=== PATIENT | female | born 1950 | race African-American/Black ===

== ENCOUNTER 2018-11-16 14:06 | Inpatient (IN) | payer OTHER ==
[~2018-11-16] VITALS: Ht 157.5 cm; Wt 49.5 kg
[~2018-11-16 14:06] MED LIST: ATROPINE SULFATE 0.1 MG/ML 10 ML SYRINGE IVP ONE; ETOMIDATE 2 MG/ML 10 ML VIAL IVP ONE
[2018-11-16] MEDS ORDERED: 0.9% SODIUM CHLORIDE 10 ML SYRINGE IVP PRN (14:15)
[2018-11-16] MEDS ORDERED: IPRATROPIUM BROMIDE 0.5 MG/2.5 ML NEB SOLUTION NEB ONE ×3 (14:15→15:00)
[2018-11-16] MEDS ORDERED: AZITHROMYCIN 500 MG/NS 250 ML IV ONE (14:15)
[2018-11-16] MEDS ORDERED: ALBUTEROL SULFATE 5 MG/ML 20 ML NEB SOLN [BULK] NEB ONE ×3 (14:15→15:00)
[2018-11-16] MEDS ORDERED: MethylPREDNISolone SOD SUCC 125 MG/2 ML VIAL IVP ONE (14:15)
[2018-11-16] MEDS ORDERED: ATOR10TA84 PO (14:17)
[2018-11-16] MEDS ORDERED: ALBU2TAB42 PO (14:20)
[2018-11-16] MEDS ORDERED: 0.9% SODIUM CHLORIDE 5 ML NEB SOLUTION NEB ONE ×2 (14:28→16:33)
[2018-11-16 14:40] LABS: BASOPHILS % (AUTO) 0.5 % (0.0-2.0); EOSINOPHILS % (AUTO) 12.3 % (1.0-6.0); HEMATOCRIT 41.8 % (36-46); HEMOGLOBIN 13.3 g/dL (12.0-16.0); LYMPHOCYTES # (AUTO) 6.5 K/uL (1.0-4.8); LYMPHOCYTES % (AUTO) 59.2 % (22.0-44.0); MEAN CORPUSCULAR HGB CONC 31.9 G/dL (31.0-37.0); MEAN CORPUSCULAR VOLUME 97 fL (80-100); MONOCYTES # (AUTO) 0.4 K/uL (0.1-1.0); NEUTROPHILS # (AUTO) 2.6 K/uL (1.8-7.7); PLATELET COUNT (AUTO) 231 K/uL (150-450); RED BLOOD CELL COUNT(AUTO) 4.29 MIL/uL (4.00-5.20); RED CELL DISTRIBUTION WIDTH 14.1 % (11.5-14.5)
[2018-11-16] MEDS ORDERED: ONDANSETRON HCL 4 MG/2 ML VIAL IVP ONE (14:45)
[2018-11-16] MEDS ORDERED: MAGNESIUM SULFATE 2 GM/WATER 50 ML IV ONE (14:45)
[2018-11-16 14:53] LABS: D-DIMER 0.92 mg/L FEU (0.00-0.50); PROTHROMBIN TIME 10.2 SEC (9.4-11.6)
[2018-11-16 14:59] LABS: ANION GAP 14 mmol/L (8-16); CALCIUM, TOTAL 9.5 mg/dL (8.8-10.5); CARBON DIOXIDE 26 mmol/L (22-29); CHLORIDE 104 mmol/L (98-107); CREATININE 1.28 mg/dL (0.60-1.30); GLOMERULAR FILTR. RATE CALC 50 mL/min (>60); GLUCOSE,RANDOM 157 mg/dL (70-110); POTASSIUM 4.7 mmol/L (3.5-5.1); SODIUM SERUM 144 mmol/L (136-145); UREA NITROGEN, BLOOD 9 mg/dL (7-18)
[2018-11-16 15:16] LABS: B-TYPE NATRIURETIC PEPTIDE 145 pg/mL (0-100)
[2018-11-16 15:18] LABS: LACTIC ACID 5.7 mmol/L (0.4-2.0)
[2018-11-16 15:25] LABS: ALANINE AMINOTRANSFERASE 34 U/L (12-78); ALBUMIN 4.1 g/dL (3.4-5.0); ALKALINE PHOSPHATASE 112 U/L (46-116); ASPARTATE AMINOTRANSFERASE 38 U/L (15-37); BILIRUBIN,TOTAL 0.5 mg/dL (0.1-1.0); CREATINE KINASE, TOTAL ONLY 106 U/L (26-192); TOTAL PROTEIN, SERUM 7.7 g/dL (6.4-8.2)
[2018-11-16] MEDS ORDERED: SODIUM CHLORIDE 0.9% 2,000 ML IV ONE (15:30)
[2018-11-16] MEDS ORDERED: SODIUM CHLORIDE 0.9% 100 ML ONE ×2 (15:39→21:14)
[2018-11-16] MEDS ORDERED: IOVERSOL 350 MG/ML 100 ML VIAL ONE (15:39)
[2018-11-16] MEDS ORDERED: RAPID SEQUENCE KIT [RSI] 1 EACH KIT ONE (15:42)
[2018-11-16] MEDS ORDERED: SUCCINYLCHOLINE CHLORIDE 20 MG/ML 10 ML VIAL ONE (15:42)
[2018-11-16] MEDS ORDERED: WATER FOR INJECTION STERILE IV ONE (16:00)
[2018-11-16] MEDS ORDERED: ALTEPLASE IV ONE ×2 (16:00)
[2018-11-16] MEDS ORDERED: SODIUM CHLORIDE 0.9% IV SCH (16:00)
[2018-11-16] MEDS ORDERED: SODIUM CHLORIDE 0.9% IV ONE (16:00)
[2018-11-16] MEDS ORDERED: ALTEPLASE IV SCH (16:00)
[2018-11-16] MEDS ORDERED: KETAMINE HCL 50 MG/ML 10 ML VIAL ONE (16:07)
[2018-11-16] MEDS ORDERED: KETAMINE HCL 50 MG/ML 10 ML VIAL IVP ONE ×2 (16:15→18:00)
[2018-11-16] MEDS: PROPOFOL 1000 MG/ISO-OSM 100 ML IV PRN (17:30)
[2018-11-16] MEDS ORDERED: ONDANSETRON HCL 4 MG/2 ML VIAL IVP PRN (17:45)
[2018-11-16] MEDS ORDERED: ACETAMINOPHEN 325 MG TABLET PO PRN (17:45)
[2018-11-16 19:15] LABS: ABG A-A DIFF O2 98.7 mmHg (10-20.0); ABG BASE EXCESS -12.5 mmol/L (-2.0-3.0); ABG CARBOXYHEMOGLOBIN 0.6 % (0.0-1.5); ABG HCO3 14.6 mmol/L (22.0-26.0); ABG METHEMOGLOBIN 0.3 % (0.0-1.5); ABG OXYGEN CONTENT 17.5 mL/dL (15.0-23.0); ABG OXYGEN SATURATION 99.5 % (95.0-98.0); ABG OXYHEMOGLOBIN 98.6 % (94.0-100.0); ABG PCO2 59 mmHg (35-45); ABG TOTAL HEMOGLOBIN 11.5 G/dL (12.0-18.0); PO2, ARTERIAL BG 558.2 mmHg (79.0-87.0); SOURCE, BLOOD GAS ARTERIAL; TEMPERATURE, FAHRENHEIT, BG 96.7 FAHREN (96.0-98.6)
[2018-11-16 19:16] LABS: ABG PH 7.087 (7.35-7.450); O2 DEVICE,BLOOD GAS VENTILATOR (ROOM AIR); PEEP,BG 5 cm H2O; SITE, BLOOD GAS LFT RADIAL; SPONTANEOUS VT, BG 438 ml; VT, ABG 400 ml
[2018-11-16] MEDS ORDERED: SODIUM BICARBONATE [ADULT] 8.4% 50 MEQ/50 ML SYRINGE IVP ONE (19:30)
[2018-11-16] MEDS ORDERED: ETOMIDATE 2 MG/ML 10 ML VIAL IVP ONE (19:45)
[2018-11-16 20:00] VITALS: BP 111/82
[2018-11-16 21:11] LABS: ABG A-A DIFF O2 134.5 mmHg (10-20.0); ABG BASE EXCESS -8.7 mmol/L (-2.0-3.0); ABG HCO3 17.4 mmol/L (22.0-26.0); ABG METHEMOGLOBIN 0.3 % (0.0-1.5); ABG OXYGEN CONTENT 17.4 mL/dL (15.0-23.0); ABG OXYGEN SATURATION 99.3 % (95.0-98.0); ABG PCO2 54 mmHg (35-45); ABG TOTAL HEMOGLOBIN 12.2 G/dL (12.0-18.0); PO2, ARTERIAL BG 233.8 mmHg (79.0-87.0); SOURCE, BLOOD GAS ARTERIAL; TEMPERATURE, FAHRENHEIT, BG 98.6 FAHREN (96.0-98.6)
[2018-11-16 21:13] LABS: ABG PH 7.178 (7.35-7.450); O2 DEVICE,BLOOD GAS VENTILATOR (ROOM AIR); SITE, BLOOD GAS RT RADIAL; VT, ABG 400 ml
[2018-11-16 21:14] LABS: PEEP,BG 5 cm H2O
[2018-11-16] MEDS ORDERED: PNEUMOCOCCAL VACCINE POLYVALENT 0.5 ML VIAL [PPSV23] IM ONE (21:30)
[2018-11-16] MEDS ORDERED: *CLINICAL-RX DOSING [ENTER DRUG IN COMMENTS] CLINICAL ONE (21:30)
[2018-11-16] MEDS ORDERED: RINGERS SOLUTION,LACTATED 1,000 ML IV ONE (21:35)
[2018-11-16] MEDS: RINGERS SOLUTION,LACTATED 1,000 ML IV SCH (22:19)
[2018-11-16] MEDS: PIPERACILLIN SODIUM/TAZOBACTAM 2.25 GM in DEXTROSE 5%-WATER 50 ML IV SCH (22:21)
[2018-11-16] MEDS ORDERED: NOREPINEPHRINE 4 MG/D5%-WATER 250 ML IV PRN (22:28)
[2018-11-16] MEDS ORDERED: VANCOMYCIN HCL 750 MG in DEXTROSE 5%-WATER 250 ML IV ONE (23:00)
[2018-11-17] VITALS (7 sets, daily range): BP systolic 117–144; BP diastolic 58–98
[2018-11-17 00:19] LABS: BILIRUBIN,TOTAL 1.2 mg/dL (0.1-1.0); CALCIUM, TOTAL 7.8 mg/dL (8.8-10.5); CREATININE 1.55 mg/dL (0.60-1.30); MAGNESIUM 3.2 mg/dL (1.80-2.40)
[2018-11-17 00:24] LABS: POTASSIUM 6.1 mmol/L (3.5-5.1)
[2018-11-17] MEDS ORDERED: DEXTROSE 50%-WATER 25 GM/50 ML SYRINGE IVP ONE (00:26)
[2018-11-17] MEDS ORDERED: DEXTROSE 50%-WATER 25 GM/50 ML SYRINGE IVP PRN (00:30)
[2018-11-17 00:53] LABS: PHOSPHORUS 9.4 mg/dL (2.5-4.9)
[2018-11-17] MEDS: PROPOFOL 1000 MG/ISO-OSM 100 ML IV PRN (02:03)
[2018-11-17 03:13] LABS: ABG A-A DIFF O2 158.8 mmHg (10-20.0); ABG BASE EXCESS -9.9 mmol/L (-2.0-3.0); ABG CARBOXYHEMOGLOBIN 0.6 % (0.0-1.5); ABG HCO3 17.3 mmol/L (22.0-26.0); ABG METHEMOGLOBIN 0.3 % (0.0-1.5); ABG OXYGEN CONTENT 17.7 mL/dL (15.0-23.0); ABG OXYGEN SATURATION 98.2 % (95.0-98.0); ABG OXYHEMOGLOBIN 97.3 % (94.0-100.0); ABG PCO2 29 mmHg (35-45); ABG TOTAL HEMOGLOBIN 12.8 G/dL (12.0-18.0); O2 DEVICE,BLOOD GAS VENTILATOR (ROOM AIR); PO2, ARTERIAL BG 96.5 mmHg (79.0-87.0); SITE, BLOOD GAS RT RADIAL; SOURCE, BLOOD GAS ARTERIAL; VT, ABG 400 ml
[2018-11-17 03:14] LABS: PEEP,BG 10 cm H2O; SPONTANEOUS VT, BG 430 ml
[2018-11-17] MEDS ORDERED: 0.9% SODIUM CHLORIDE 10 ML SYRINGE IVP PRN (03:15)
[2018-11-17] MEDS ORDERED: MAGNESIUM HYDROXIDE SUSPENSION 30 ML UDCUP PO PRN (03:15)
[2018-11-17] MEDS: SODIUM POLYSTYRENE SULFONATE 15 GM/60 ML SUSPENSION BOTTLE PO SCH ×2 (03:24→09:10)
[2018-11-17] MEDS: PIPERACILLIN SODIUM/TAZOBACTAM 2.25 GM in DEXTROSE 5%-WATER 50 ML IV SCH ×4 (03:42→21:43)
[2018-11-17 04:28] LABS: AMPHET/METH SCREEN,URINE NEGATIVE (NEGATIVE); APPEARANCE,URINE CLOUDY (CLEAR); BARBITURATE SCREEN, URINE NEGATIVE (NEGATIVE); BENZODIAZEPINES SCREEN,URINE NEGATIVE (NEGATIVE); BILIRUBIN,URINE NEGATIVE (NEGATIVE); CANNABINOID SCREEN,URINE NEGATIVE (NEGATIVE); COCAINE SCREEN,URINE NEGATIVE (NEGATIVE); GLUCOSE, URINE (UA) 100 mg/dL (NEGATIVE); KETONES,URINE NEGATIVE (NEGATIVE); LEUKOCYTE ESTERASE ,URINE NEGATIVE (NEGATIVE); METHADONE SCREEN, URINE NEGATIVE (NEGATIVE); NITRATE,URINE NEGATIVE (NEGATIVE); OCCULT BLOOD,URINE MODERATE (NEGATIVE); OPIATE SCREEN,URINE NEGATIVE (NEGATIVE); PROTEIN,URINE SEE CONFIRM (NEGATIVE); UROBILINOGEN,URINE 0.2 mg/dL (<=1.0)
[2018-11-17 04:35] LABS: PHENCYCLIDINE SCREEN,URINE NEGATIVE (NEGATIVE)
[2018-11-17 04:48] LABS: SULFOSALICYLIC ACID,URINE 1+ (Negative)
[2018-11-17 04:49] LABS: BACTERIA,URINE Moderate /HPF (None Seen); COARSE GRANULAR CASTS,URINE 0-2 /LPF (None Seen); SQUAMOUS EPITHELIAL CELL,UR Moderate /LPF (None Seen)
[2018-11-17 05:05] LABS: BASOPHILS % (AUTO) 0.2 % (0.0-2.0); EOSINOPHILS % (AUTO) 2.2 % (1.0-6.0); HEMATOCRIT 39.3 % (36-46); HEMOGLOBIN 12.7 g/dL (12.0-16.0); LYMPHOCYTES % (AUTO) 11.9 % (22.0-44.0); MEAN CORPUSCULAR HEMOGLOBIN 31.3 pg (26.0-34.0); MEAN CORPUSCULAR HGB CONC 32.3 G/dL (31.0-37.0); MEAN CORPUSCULAR VOLUME 97 fL (80-100); MONOCYTES # (AUTO) 0.7 K/uL (0.1-1.0); MONOCYTES % (AUTO) 3.9 % (2.0-9.0); NEUTROPHILS # (AUTO) 13.9 K/uL (1.8-7.7); NEUTROPHILS % (AUTO) 81.8 % (40.0-70.0); RED BLOOD CELL COUNT(AUTO) 4.06 MIL/uL (4.00-5.20)
[2018-11-17 05:17] LABS: ALBUMIN 3.1 g/dL (3.4-5.0); BILIRUBIN,TOTAL 1.5 mg/dL (0.1-1.0); CALCIUM, TOTAL 8.2 mg/dL (8.8-10.5); CREATININE 1.73 mg/dL (0.60-1.30); PHOSPHORUS 7.5 mg/dL (2.5-4.9); POTASSIUM 5.6 mmol/L (3.5-5.1); TOTAL PROTEIN, SERUM 6.1 g/dL (6.4-8.2)
[2018-11-17] MEDS ORDERED: PROPOFOL 1000 MG/ISO-OSM 100 ML IV PRN (06:14)
[2018-11-17] MEDS: RINGERS SOLUTION,LACTATED 1,000 ML IV SCH (06:44)
[2018-11-17 07:15] LABS: PLATELET COUNT (AUTO) 75 K/uL (150-450)
[2018-11-17] MEDS ORDERED: SODIUM CHLORIDE 0.9% 1,000 ML IV SCH (07:30)
[2018-11-17] MEDS: VANCOMYCIN HCL 750 MG in DEXTROSE 5%-WATER 250 ML IV SCH (07:51)
[2018-11-17] MEDS: ALBUTEROL SULFATE 2.5 MG/0.5 ML NEB SOLUTION NEB SCH ×3 (08:13→20:11)
[2018-11-17] MEDS: IPRATROPIUM BROMIDE 0.5 MG/2.5 ML NEB SOLUTION NEB SCH ×3 (08:13→20:11)
[2018-11-17 08:22] LABS: ABG BASE EXCESS -7.6 mmol/L (-2.0-3.0); ABG CARBOXYHEMOGLOBIN 0.6 % (0.0-1.5); ABG HCO3 18.6 mmol/L (22.0-26.0); ABG METHEMOGLOBIN 0.3 % (0.0-1.5); ABG OXYGEN CONTENT 18.6 mL/dL (15.0-23.0); ABG OXYGEN SATURATION 99.1 % (95.0-98.0); ABG OXYHEMOGLOBIN 98.2 % (94.0-100.0); ABG PCO2 44 mmHg (35-45); ABG PH 7.266 (7.35-7.450); ABG TOTAL HEMOGLOBIN 13.2 G/dL (12.0-18.0); PO2, ARTERIAL BG 180.1 mmHg (79.0-87.0); SITE, BLOOD GAS RT RADIAL; SOURCE, BLOOD GAS ARTERIAL; TEMPERATURE, FAHRENHEIT, BG 98.6 FAHREN (96.0-98.6)
[2018-11-17 08:23] LABS: O2 DEVICE,BLOOD GAS VENTILATOR (ROOM AIR); PEEP,BG 10 cm H2O; VT, ABG 400 ml
[2018-11-17 08:36] LABS: GLUCOSE,POINT OF CARE 205 MG/DL (70-110)
[2018-11-17 08:36] LABS: GLUCOSE,POINT OF CARE 254 MG/DL (70-110)
[2018-11-17] MEDS: DOCUSATE SODIUM 100 MG CAPSULE PO SCH ×2 (09:10→21:43)
[2018-11-17] MEDS: FAMOTIDINE 10 MG/ML 2 ML VIAL IVP SCH (09:10)
[2018-11-17] MEDS: DEXTROSE 5%-0.45% SODIUM CHL 1,000 ML IV SCH (10:59)
[2018-11-17] MEDS: ONDANSETRON HCL 4 MG/2 ML VIAL IVP PRN ×2 (12:21→21:54)
[2018-11-17 12:55] LABS: ALBUMIN 3.2 g/dL (3.4-5.0); CALCIUM, TOTAL 8.3 mg/dL (8.8-10.5); CREATININE 1.78 mg/dL (0.60-1.30); MAGNESIUM 2.7 mg/dL (1.80-2.40); PHOSPHORUS 5.3 mg/dL (2.5-4.9); POTASSIUM 4.2 mmol/L (3.5-5.1); TOTAL PROTEIN, SERUM 6.1 g/dL (6.4-8.2)
[2018-11-17 13:26] LABS: BILIRUBIN,TOTAL 1.8 mg/dL (0.1-1.0)
[2018-11-17 13:45] LABS: ABG A-A DIFF O2 108.8 mmHg (10-20.0); ABG BASE EXCESS -5.5 mmol/L (-2.0-3.0); ABG CARBOXYHEMOGLOBIN 0.2 % (0.0-1.5); ABG HCO3 20.5 mmol/L (22.0-26.0); ABG METHEMOGLOBIN 0.3 % (0.0-1.5); ABG OXYGEN CONTENT 17.3 mL/dL (15.0-23.0); ABG OXYGEN SATURATION 98.6 % (95.0-98.0); ABG OXYHEMOGLOBIN 98.1 % (94.0-100.0); ABG PCO2 35 mmHg (35-45); ABG PH 7.367 (7.35-7.450); ABG TOTAL HEMOGLOBIN 12.4 G/dL (12.0-18.0); PO2, ARTERIAL BG 135.8 mmHg (79.0-87.0); SOURCE, BLOOD GAS ARTERIAL; TEMPERATURE, FAHRENHEIT, BG 98.6 FAHREN (96.0-98.6)
[2018-11-17 13:46] LABS: SITE, BLOOD GAS RT RADIAL
[2018-11-17 13:47] LABS: CPAP, BG 0 cm H2O; O2 DEVICE,BLOOD GAS VENTILATOR (ROOM AIR); PEEP,BG 0 cm H2O; PRESSURE SUPPORT, BG 8 cm H2O; VENT MODE, BG SPONTANEOUS (ROOM AIR)
[2018-11-17 13:48] LABS: SPONTANEOUS VT, BG 386 ml
[2018-11-17] MEDS ORDERED: AZITHROMYCIN 500 MG/NS 250 ML IV SCH (14:00)
[2018-11-17] MEDS: ISOSORB DINIT/HYDRALAZINE HCL 20-37.5 MG TABLET PO SCH ×2 (16:36→21:42)
[2018-11-17] MEDS ORDERED: SODIUM BICARBONATE [ADULT] 8.4% 50 MEQ/50 ML SYRINGE IVP ONE (17:26)
[2018-11-17] MEDS ORDERED: EPINEPHrine 1:10,000 [1 MG/10 ML] SYRINGE IVP ONE (17:26)
[2018-11-17] MEDS ORDERED: 0.9% SODIUM CHLORIDE 10 ML SYRINGE IVP ONE (17:26)
[2018-11-17] MEDS ORDERED: METOPROLOL SUCCINATE 25 MG ER TABLET PO SCH (21:00)
[2018-11-17 22:25] LABS: CREATININE,URINE RANDOM 83.8 mg/dL (30.0-125.0)
[2018-11-18] VITALS: BP 136/70
[2018-11-18] MEDS: ALBUTEROL SULFATE 2.5 MG/0.5 ML NEB SOLUTION NEB SCH ×2 (02:12→14:57)
[2018-11-18] MEDS: IPRATROPIUM BROMIDE 0.5 MG/2.5 ML NEB SOLUTION NEB SCH ×2 (02:12→14:57)
[2018-11-18 04:00] VITALS: BP 155/83
[2018-11-18] MEDS: PIPERACILLIN SODIUM/TAZOBACTAM 2.25 GM in DEXTROSE 5%-WATER 50 ML IV SCH ×2 (04:21→12:22)
[2018-11-18 05:26] LABS: HEMATOCRIT 31.9 % (36-46); HEMOGLOBIN 10.5 g/dL (12.0-16.0); MEAN CORPUSCULAR HGB CONC 32.9 G/dL (31.0-37.0); MEAN CORPUSCULAR VOLUME 94 fL (80-100); PLATELET COUNT (AUTO) 99 K/uL (150-450); RED BLOOD CELL COUNT(AUTO) 3.39 MIL/uL (4.00-5.20); RED CELL DISTRIBUTION WIDTH 13.6 % (11.5-14.5)
[2018-11-18] MEDS: ACETAMINOPHEN 325 MG TABLET PO PRN ×2 (05:41→12:22)
[2018-11-18] MEDS: ONDANSETRON HCL 4 MG/2 ML VIAL IVP PRN (05:47)
[2018-11-18 05:50] LABS: ALBUMIN 2.9 g/dL (3.4-5.0); BILIRUBIN,TOTAL 0.7 mg/dL (0.1-1.0); CALCIUM, TOTAL 8.1 mg/dL (8.8-10.5); CREATININE 2.09 mg/dL (0.60-1.30); MAGNESIUM 2.3 mg/dL (1.80-2.40); PHOSPHORUS 5.2 mg/dL (2.5-4.9); POTASSIUM 3.1 mmol/L (3.5-5.1); THYROID STIMULATING HORMONE 0.6 uIU/mL (0.36-3.74); TOTAL PROTEIN, SERUM 5.3 g/dL (6.4-8.2)
[2018-11-18 05:52] LABS: BAND NEUTROPHILS % (MANUAL) 21 % (0-5); LYMPHOCYTES % (MANUAL) 7 % (22-44); MONOCYTES % (MANUAL) 3 % (2-9); SEGMENTED NEUTROPHILS % 69 % (40-70)
[2018-11-18] MEDS: VANCOMYCIN HCL 750 MG in DEXTROSE 5%-WATER 250 ML IV SCH (07:33)
[2018-11-18 08:00] VITALS: BP 142/72
[2018-11-18] MEDS: DEXTROSE 5%-0.45% SODIUM CHL 1,000 ML IV SCH (08:24)
[2018-11-18] MEDS: FAMOTIDINE 10 MG/ML 2 ML VIAL IVP SCH (08:24)
[2018-11-18] MEDS: DOCUSATE SODIUM 100 MG CAPSULE PO SCH (08:25)
[2018-11-18] MEDS: ISOSORB DINIT/HYDRALAZINE HCL 20-37.5 MG TABLET PO SCH (08:25)
[2018-11-18] MEDS ORDERED: POTASSIUM CHL 10 MEQ/WATER 50 ML IV ONE (08:30)
[2018-11-18] MEDS ORDERED: ISOSORB DINIT/HYDRALAZINE HCL 20-37.5 MG TABLET PO SCH (09:00)
[2018-11-18 12:00] VITALS: BP 127/67
[2018-11-18 12:42] LABS: ALBUMIN 2.8 g/dL (3.4-5.0); BILIRUBIN,TOTAL 0.7 mg/dL (0.1-1.0); CREATININE 1.97 mg/dL (0.60-1.30); MAGNESIUM 2.1 mg/dL (1.80-2.40); PHOSPHORUS 4.4 mg/dL (2.5-4.9); TOTAL PROTEIN, SERUM 5.3 g/dL (6.4-8.2)
[2018-11-18 12:45] LABS: POTASSIUM 2.9 mmol/L (3.5-5.1)
[2018-11-18] MEDS ORDERED: POTASSIUM CHLORIDE 20 MEQ ER TABLET PO ONE (13:00)
[2018-11-18] MEDS: POTASSIUM CHL 10 MEQ/WATER 50 ML IV SCH ×2 (13:19→14:26)
[2018-11-18] MEDS ORDERED: METOPROLOL SUCCINATE 25 MG ER TABLET PO SCH (21:00)
== END 2018-11-18 15:20 | disposition short-term general hospital (02) | DRG 871 ==
LOC: EMS 14:08 → ICU 18:12
PROVIDERS: ADMIT Internal Medicine; ATTEND Internal Medicine
PROC: 5A1935Z Respiratory Ventilation, Less than 24 Consecutive Hours (ICD-10-PCS; principal; 2018-11-16)
PROC: 0BH17EZ Insertion of Endotracheal Airway into Trachea, Via Natural or Artificial Opening (ICD-10-PCS; 2018-11-16)
PROC: 5A09357 Assistance with Respiratory Ventilation, Less than 24 Consecutive Hours, Continuous Positive Airway Pressure (ICD-10-PCS; 2018-11-16)
PROC: 5A12012 Performance of Cardiac Output, Single, Manual (ICD-10-PCS; 2018-11-16)
DX: A41.9 Sepsis, unspecified organism (principal); J69.0 Pneumonitis due to inhalation of food and vomit; I21.4 Non-ST elevation (NSTEMI) myocardial infarction; I46.9 Cardiac arrest, cause unspecified; J96.21 Acute and chronic respiratory failure with hypoxia; J96.22 Acute and chronic respiratory failure with hypercapnia; N17.0 Acute kidney failure with tubular necrosis; E87.4 Mixed disorder of acid-base balance; I42.9 Cardiomyopathy, unspecified; J44.1 Chronic obstructive pulmonary disease with (acute) exacerbation; J45.901 Unspecified asthma with (acute) exacerbation; N39.0 Urinary tract infection, site not specified; R00.1 Bradycardia, unspecified; N18.9 Chronic kidney disease, unspecified; E78.00 Pure hypercholesterolemia, unspecified; D64.9 Anemia, unspecified; D69.6 Thrombocytopenia, unspecified; E87.6 Hypokalemia; E78.5 Hyperlipidemia, unspecified; F17.200 Nicotine dependence, unspecified, uncomplicated; I12.9 Hypertensive chronic kidney disease with stage 1 through stage 4 chronic kidney disease, or unspecified chronic kidney disease; Z79.899 Other long term (current) drug therapy
CPT/HCPCS: 31500; 36600; 70450; 71275; 80307; 82570; 82805; 83605; 83735; 84100; 84132; 84300; 84443; 84540; 85379; 87040; 87070; 87081; 87086; 87205; 92950; 93005; 93306; 94002; 94003; 94640; 94660; 99291; G0378; J0171; J0330; J0456; J0461; J2405; J2543; J2704; J2930; J2997; J3370; J3475; J3480; J3490; J7050; J7060; J7120

== ENCOUNTER 2020-07-24 06:16 | Emergency (ER) | payer OTHER ==
[~2020-07-24] VITALS: Ht 162.6 cm; Wt 56.8 kg
[~2020-07-24 06:16] MED LIST changes: +ALBU2TAB42 PO; +ATOR10TA84 PO; -ATROPINE SULFATE 0.1 MG/ML 10 ML SYRINGE IVP ONE; -ETOMIDATE 2 MG/ML 10 ML VIAL IVP ONE
[2020-07-24] MEDS ORDERED: LOSA25TA21 PO (06:26)
[2020-07-24] MEDS ORDERED: MONT-35 PO (06:26)
[2020-07-24] MEDS ORDERED: AmLODIPine BESYLATE 5 MG TABLET PO ONE (07:00)
[2020-07-24 07:29] LABS: ANION GAP 9 mmol/L (8-16); CALCIUM, TOTAL 9.8 mg/dL (8.8-10.5); CARBON DIOXIDE 31 mmol/L (22-29); CHLORIDE 104 mmol/L (98-107); CREATININE 1.04 mg/dL (0.60-1.30); GLOMERULAR FILTR. RATE CALC > 60 mL/min (>60); GLUCOSE,RANDOM 154 mg/dL (70-110); POTASSIUM 3.5 mmol/L (3.5-5.1); SODIUM SERUM 144 mmol/L (136-145); UREA NITROGEN, BLOOD 11 mg/dL (7-18)
[2020-07-24 07:34] LABS: ALANINE AMINOTRANSFERASE 57 U/L (12-78); ALBUMIN 4.1 g/dL (3.4-5.0); ALKALINE PHOSPHATASE 95 U/L (46-116); ASPARTATE AMINOTRANSFERASE 45 U/L (15-37); BASOPHILS % (AUTO) 0.3 % (0.0-2.0); BILIRUBIN,TOTAL 0.8 mg/dL (0.1-1.0); EOSINOPHILS % (AUTO) 0.8 % (1.0-6.0); HEMATOCRIT 36.7 % (36-46); HEMOGLOBIN 11.8 g/dL (12.0-16.0); LYMPHOCYTES # (AUTO) 2.7 K/uL (1.0-4.8); LYMPHOCYTES % (AUTO) 39.5 % (22.0-44.0); MEAN CORPUSCULAR HEMOGLOBIN 29.7 pg (26.0-34.0); MEAN CORPUSCULAR HGB CONC 32.3 G/dL (31.0-37.0); MEAN CORPUSCULAR VOLUME 92 fL (80-100); MONOCYTES # (AUTO) 0.6 K/uL (0.1-1.0); MONOCYTES % (AUTO) 8.5 % (2.0-9.0); NEUTROPHILS # (AUTO) 3.4 K/uL (1.8-7.7); NEUTROPHILS % (AUTO) 50.9 % (40.0-70.0); PLATELET COUNT (AUTO) 222 K/uL (150-450); RED BLOOD CELL COUNT(AUTO) 3.99 MIL/uL (4.00-5.20); RED CELL DISTRIBUTION WIDTH 13.5 % (11.5-14.5); TOTAL PROTEIN, SERUM 7.5 g/dL (6.4-8.2)
[2020-07-24 09:00] LABS: APPEARANCE,URINE CLEAR (CLEAR); BILIRUBIN,URINE NEGATIVE (NEGATIVE); GLUCOSE, URINE (UA) NEGATIVE (NEGATIVE); KETONES,URINE NEGATIVE (NEGATIVE); LEUKOCYTE ESTERASE ,URINE NEGATIVE (NEGATIVE); NITRATE,URINE NEGATIVE (NEGATIVE); OCCULT BLOOD,URINE NEGATIVE (NEGATIVE); PH,URINE 7.5 (5.0-8.0); PROTEIN,URINE NEGATIVE (NEGATIVE); UROBILINOGEN,URINE 0.2 mg/dL (<=1.0)
[2020-07-24 09:30] VITALS: BP 220/86
== END 2020-07-24 09:43 | disposition home or self-care (01) ==
LOC: EMS 06:18
DX: F43.9 Reaction to severe stress, unspecified (principal); I10 Essential (primary) hypertension; E78.00 Pure hypercholesterolemia, unspecified; J44.9 Chronic obstructive pulmonary disease, unspecified
CPT/HCPCS: 71045; 80053; 81003; 84484; 85025; 93005; 99285; 36415-L1; 36415-TC